=== PATIENT | female | born 1950 | race Caucasian/White ===

== ENCOUNTER 2019-07-22 18:16 | Emergency (ER) | payer MEDICARE, MEDICAID ==
[~2019-07-22] VITALS: Ht 154.9 cm; Wt 86.2 kg
[2019-07-22] MEDS ORDERED: METFORMIN HCL500 M3 PO (18:36)
[2019-07-22] MEDS ORDERED: TRAMADOL 50 MG50 MG PO (18:36)
[2019-07-22] MEDS ORDERED: LIPITOR40 MG PO (18:36)
[2019-07-22] MEDS ORDERED: ZOLOFT25 MG PO (18:36)
[2019-07-22] MEDS ORDERED: MELOXICAM7.5 MG PO (18:37)
[2019-07-22 20:32] VITALS: BP 148/62
== END 2019-07-22 20:33 | disposition home or self-care (01) ==
LOC: M.ERS 18:16
DX: M79.672 Pain in left foot (principal); E11.9 Type 2 diabetes mellitus without complications; F41.9 Anxiety disorder, unspecified; F17.210 Nicotine dependence, cigarettes, uncomplicated